=== PATIENT | female | born 1975 | race Hispanic/Latino ===

== ENCOUNTER 2019-03-22 14:31 | Outpatient (CLI) | payer BC ==
--- NOTE | 2019-03-23 11:00 | MRI ---
LEFT WRIST MRI WITHOUT IV CONTRAST: Date: 03/22/19 HISTORY: Kienbock's disease of lunate bone. Tenderness on volar aspect of wrist. This area is marked with a vi tamin E tablet. FINDINGS: There is some abnormal superficial subcutaneous fat stranding of the volar aspect of the wrist, somew hat superficial and deep to the palmar carpal ligament and the insertion region of the palmaris longu s tendon. This is nonspecific and conceivably could represent contusion or inflammation or infection. No evidence for abnormal marrow signal. The lunate bone appears normal. There is a very tiny focus o f linear increased signal in the central triangular fibrocartilage complex. This could possibly repre sent a small focal perforation. Scapholunate ligament region is unremarkable. IMPRESSION: Some superficial subcutaneous fat stranding of uncertain etiology or significance on the volar aspect of the wrist somewhat superficial and deep to the palmar carpal ligament and insertion of the palmar is longus tendon regions. No evidence for Kienbock's disease. Normal appearing lunate bone. Possible tiny perforation of the central TFC. POS: [facility]
== END 2019-03-22 14:32 | disposition home or self-care (01) ==
LOC: BICMRI 14:31
PROVIDERS: ATTEND Orthopaedic Surgery Hand Surgery
DX: M93.1 Kienbock's disease of adults (principal)

== ENCOUNTER 2023-01-16 09:02 | Outpatient (CLI) | payer BC | END 2023-01-16 09:03 | disposition home or self-care (01) | LOC: RAD 09:02 | PROVIDERS: ATTEND Nurse Practitioner Family | DX: R06.02 Shortness of breath (principal) | CPT/HCPCS: 71046 ==